=== PATIENT | male | born 1975 | race Native Hawaiian/Other Pacific Islander ===

== ENCOUNTER 2020-08-06 17:40 | Emergency (ER) | payer SELFPAY ==
[2020-08-06] MEDS ORDERED: HYDROcodone/ACETAMINOPHEN 5-325 MG TAB PO ONE (18:17)
[2020-08-06] MEDS ORDERED: LIDOCAINE-MPF (1%) 10 MG/1 ML VIAL 5 ML INFILTRATI ONE (18:18)
--- NOTE | 2020-08-06 18:52 | Emergency Department Report ---
- General Chief complaint: Skin/Abscess/Foreign Body Stated complaint: RT BUTTOCK ABSCESS Time Seen by Provider: 08/06/20 18:00 Source: patient, order planner (juliette) Mode of arrival: Ambulatory Limitations: Language Barrier - History of Present Illness Initial comments: juliette, patient account retention representative used for Sammarinese interpretation Patient is a 44-year-old male presents emergency room with complaints of an abscess to the right buttock that began a week ago. He states that he has had pain, swelling, redness to the buttock. He states that he went to a primary care doctor 4 days ago and was given an IM injection and prescribed Keflex and ibuprofen. He states that despite the medications it has been worsening. He denies any drainage, fever, vomiting, chills. He states that he had one in the same area in October 2019 and it went away after taking medications and has not had to have an I&D in the past. He denies any past medical history. No allergies to medications. - Related Data Previous Rx's Medication Instructions Recorded Last Taken Type Acetaminophen/Codeine [Tylenol 1 tab PO Q6H PRN #10 tab 08/06/20 Unknown Rx /Codeine # 3 tab] Sulfamethoxazole/Trimethoprim 1 each PO BID 7 Days #14 tablet 08/06/20 Unknown Rx [Bactrim DS TAB] Allergies Allergy/AdvReac Type Severity Reaction Status Date / Time No Known Allergies Allergy Unverified 08/06/20 17:43 Abscess Boil HPI - HPI Chief Complaint: Skin/Abscess/Foreign Body Stated Complaint: RT BUTTOCK ABSCESS Time Seen by Provider: 08/06/20 18:00 Home Medications: Previous Rx's Medication Instructions Recorded Last Taken Type Acetaminophen/Codeine [Tylenol 1 tab PO Q6H PRN #10 tab 08/06/20 Unknown Rx /Codeine # 3 tab] Sulfamethoxazole/Trimethoprim 1 each PO BID 7 Days #14 tablet 08/06/20 Unknown Rx [Bactrim DS TAB] Allergies/Adverse Reactions: Allergies Allergy/AdvReac Type Severity Reaction Status Date / Time No Known Allergies Allergy Unverified 08/06/20 17:43 ED Review of Systems ROS: Stated complaint: RT BUTTOCK ABSCESS Other details as noted in HPI Comment: All other systems reviewed and negative ED Past Medical Hx - Past Medical History Previous Medical History?: No - Surgical History Past Surgical History?: No - Medications Home Medications: Home Medications Medication Instructions Recorded Confirmed Last Taken Type Acetaminophen/Codeine [Tylenol 1 tab PO Q6H PRN #10 tab 08/06/20 Unknown Rx /Codeine # 3 tab] Sulfamethoxazole/Trimethoprim 1 each PO BID 7 Days #14 tablet 08/06/20 Unknown Rx [Bactrim DS TAB] ED Physical Exam - General Limitations: No Limitations General appearance: alert, in no apparent distress - Head Head exam: Present: atraumatic, normocephalic - Eye Eye exam: Present: normal appearance - ENT ENT exam: Present: mucous membranes moist - Respiratory Respiratory exam: Absent: respiratory distress, accessory muscle use - Neurological Exam Neurological exam: Present: alert, oriented X3 - Psychiatric Psychiatric exam: Present: normal affect, normal mood - Skin Skin exam: Present: warm, dry, other (irrigation pump installer: napoleon ch, there is a 3 cm area of induration with central flutuance present to the right gluteal region near the gluteal crease with the right thigh, there is a 5 cm area of surrounding erythema, is not in the gluteal cleft or near the perirectal region, there is no drainage, no opening, no necrosis, no skin denduing, no blistering) ED Course Vital Signs 08/06/20 08/06/20 17:44 19:05 Temperature 98.2 F 98.2 F Pulse Rate 60 Respiratory 18 18 Rate Blood Pressure 153/100 Blood Pressure 145/95 [Right] O2 Sat by Pulse 99 Oximetry - I & D Right Buttocks Type of Procedure: Simple Site: right gluteal region Blade Size: 11 I & D Procedure: betadine prep, sterile drapes applied, sterile dressing applied Progress: irrigation pump installer: napoleon ch Betadine prep, 4 cc of 1% lidocaine without epinephrine used as anesthetic, Betadine prep again, sterile drapes applied, 11 blade used to make 1 cm incision, moderate amount of purulent drainage expressed, used blunt forceps to break up any loculations, irrigated with saline, packed with 1/4 inch iodoform gauze, patient tolerated well, no complications, bleeding controlled, sterile dressing applied ED Medical Decision Making - Medical Decision Making juliette, patient account retention representative used for Sammarinese interpretation Patient is a 44-year-old male presents emergency room with complaints of an abscess to the right buttock that began a week ago. He states that he has had pain, swelling, redness to the buttock. He states that he went to a primary care doctor 4 days ago and was given an IM injection and prescribed Keflex and ibuprofen. He states that despite the medications it has been worsening. He denies any drainage, fever, vomiting, chills. He states that he had one in the same area in October 2019 and it went away after taking medications and has not had to have an I&D in the past. He denies any past medical history. No allergies to medications. VSS. on exam: irrigation pump installer: jing permanent waver, there is a 3 cm area of induration with central flutuance present to the right gluteal region near the gluteal crease with the right thigh, there is a 5 cm area of surrounding erythema, is not in the gluteal cleft or near the perirectal region, there is no drainage, no opening, no necrosis, no skin denduing, no blistering. I&D performed per procedure note. pt given prescription for bactrim and tylenol with codeine. advised pt Please take medication as prescribed. Do not drive or operate machinery while taking pain medication. Packing needs to be removed in 2 days, please return to the emergency room. Please keep area clean, dry, covered. May wash around area with soap and water and pat dry. No hot tub, no pool, no soaking in water. Showering is fine. Return to emergency room immediately for any new or worsening symptoms. Critical care attestation.: If time is entered above; I have spent that time in minutes in the direct care of this critically ill patient, excluding procedure time. ED Disposition Clinical Impression: Abscess, gluteal, right Disposition: DC-01 TO HOME OR SELFCARE Is pt being admited?: No Does the pt Need Aspirin: No Condition: Stable Instructions: Abscess Incision and Drainage (ED) Additional Instructions: Please take medication as prescribed. Do not drive or operate machinery while taking pain medication. Packing needs to be removed in 2 days, please return to the emergency room. Please keep area clean, dry, covered. May wash around area with soap and water and pat dry. No hot tub, no pool, no soaking in water. Showering is fine. Return to emergency room immediately for any new or worsening symptoms. [place] los medicamentos segn lo prescrito. No conduzca ni maneje maquinaria mientras est tomando analgsicos. El empaque debe retirarse en 2 romano, regrese a la cheryl de emergencias. Mantenga el radha limpia, seca y cubierta. Puede vandana alrededor del radha con agua y jabn y secar. Sin baera de hidromasaje, sin piscina, sin remojo en agua. Ducharse est renata. Regrese a la cheryl de emergencias de inmediato ante cualquier sntoma nuevo o que empeore. Prescriptions: Sulfamethoxazole/Trimethoprim [Bactrim DS TAB] 1 each PO BID 7 Days #14 tablet Acetaminophen/Codeine [Tylenol /Codeine # 3 tab] 1 tab PO Q6H PRN #10 tab PRN Reason: pain Referrals: PRIMARY CARE,MD [Primary Care Provider] - 2-3 Days Time of Disposition: 18:52 Print Language: ROMANIAN
[2020-08-06 19:06] VITALS: BP 145/95
== END 2020-08-06 19:08 | disposition home or self-care (01) ==
LOC: ED 17:40
DX: L02.31 Cutaneous abscess of buttock (principal); Z79.899 Other long term (current) drug therapy

== ENCOUNTER → 2020-08-08 17:42 | Emergency (ER) | payer SELFPAY | END | disposition left against medical advice (07) | LOC: ED 17:42 | DX: Z53.21 Procedure and treatment not carried out due to patient leaving prior to being seen by health care provider (principal) ==

== ENCOUNTER 2020-08-09 17:21 | Emergency (ER) | payer SELFPAY ==
[2020-08-09 17:35] VITALS: BP 135/86
--- NOTE | 2020-08-09 17:35 | Emergency Department Report ---
Suture/Staple Removal - [facility] Chief Complaint: Wound/Laceration Stated Complaint: CHECK WOUND Time Seen by Provider: 08/09/20 17:31 When Sutures or Todd Placed: 5-7 Days Ago Wound Location: right buttock ED Review of Systems ROS: Stated complaint: CHECK WOUND Other details as noted in HPI Constitutional: denies: chills, fever Eyes: denies: eye pain, eye discharge, vision change ENT: denies: ear pain, throat pain Respiratory: denies: cough, shortness of breath, wheezing Cardiovascular: denies: chest pain, palpitations Endocrine: no symptoms reported Gastrointestinal: denies: abdominal pain, nausea, diarrhea Genitourinary: denies: urgency, dysuria Musculoskeletal: denies: back pain, joint swelling, arthralgia Skin: denies: rash, lesions Neurological: denies: headache, weakness, paresthesias Psychiatric: denies: anxiety, depression Hematological/Lymphatic: denies: easy bleeding, easy bruising ED Past Medical Hx - Past Medical History Previous Medical History?: No - Surgical History Past Surgical History?: No - Social History Smoking Status: Never Smoker Substance Use Type: None - Medications Home Medications: Home Medications Medication Instructions Recorded Confirmed Last Taken Type Acetaminophen/Codeine [Tylenol 1 tab PO Q6H PRN #10 tab 08/06/20 Unknown Rx /Codeine # 3 tab] Sulfamethoxazole/Trimethoprim 1 each PO BID 7 Days #14 tablet 08/06/20 Unknown Rx [Bactrim DS TAB] Suture Removal Exam - Exam General: Vital signs noted. No distress. Alert and acting appropriately. Wound: No Pathologic Erythema, No Tenderness, No Drainage, No Pus, No Wound Dehiscence Other Systems: All other systems reviewed and are unremarkable. ED Course Vital Signs 08/09/20 17:34 Temperature 98.2 F Pulse Rate 54 L Respiratory 18 Rate Blood Pressure 135/86 O2 Sat by Pulse 97 Oximetry - Reevaluation(s) Reevaluation #1: 08/09/20 17:33 Patient is speaking in full sentences with no signs of distress noted. ED Recheck MDM - Medical Decision Making 11/05 packing removed. Patient tolerated well. no swelling. normal healing. no abscess. no cellulitis. Patient was instructed to Follow-up with a primary care doctor in 3-5 days or if symptoms worsen and continue return to emergency room as soon as possible. At time of discharge, the patient does not seem toxic or ill in appearance. No acute signs of distress noted. Patient agrees to discharge treatment plan of care. No further questions noted by the patient. Critical care attestation.: If time is entered above; I have spent that time in minutes in the direct care of this critically ill patient, excluding procedure time. ED Disposition Clinical Impression: Abscess packing removal Disposition: DC- TO HOME OR SELFCARE Is pt being admited?: No Does the pt Need Aspirin: No Condition: Stable Additional Instructions: Follow-up with a primary care doctor in 3-5 days or if symptoms worsen and continue return to emergency room as soon as possible. Referrals: PRIMARY MD CLEMENT [Referring] - 3-5 Days DAVIDSON ROME MD [Staff Physician] - 3-5 Days
== END 2020-08-09 18:00 | disposition home or self-care (01) ==
LOC: ED 17:21
DX: L02.31 Cutaneous abscess of buttock (principal); Z48.02 Encounter for removal of sutures; Z79.899 Other long term (current) drug therapy

== ENCOUNTER 2021-07-23 16:35 | Emergency (ER) | payer SELFPAY ==
[2021-07-23 17:34] VITALS: BP 139/86
--- NOTE | 2021-07-23 18:26 | Emergency Department Report ---
ED General Adult HPI - General Chief complaint: Skin/Abscess/Foreign Body Stated complaint: RT GLUTEAL ABCESS Time Seen by Provider: 07/23/21 17:35 Source: patient Mode of arrival: Ambulatory Limitations: No Limitations - History of Present Illness Initial comments: 45-year-old male patient presents with complaints of right buttock abscess x7 days. He states the abscess began to drain today. He denies any fever/chills/sweats. He does report history of an abscess in the same area 1 year ago. -: Gradual - Related Data Previous Rx's Medication Instructions Recorded Last Taken Type Acetaminophen/Codeine [Tylenol 1 tab PO Q6H PRN #10 tab 08/06/20 Unknown Rx /Codeine # 3 tab] Sulfamethoxazole/Trimethoprim 1 each PO BID 7 Days #14 tablet 08/06/20 Unknown Rx [Bactrim DS TAB] Clindamycin [Clindamycin CAP] 300 mg PO Q6H 10 Days #40 capsule 07/23/21 Unknown Rx Ibuprofen [Motrin 800 MG tab] 800 mg PO Q8HR PRN #20 tablet 07/23/21 Unknown Rx Mupirocin [Bactroban 2% OINT] 1 applic TP TID 7 Days #1 tube 07/23/21 Unknown Rx Allergies Allergy/AdvReac Type Severity Reaction Status Date / Time No Known Allergies Allergy Unverified 08/06/20 17:43 ED Review of Systems ROS: Stated complaint: RT GLUTEAL ABCESS Other details as noted in HPI Constitutional: denies: chills, diaphoresis, fever, malaise, weakness Skin: as per HPI ED Past Medical Hx - Past Medical History Previous Medical History?: No - Surgical History Past Surgical History?: No - Social History Smoking Status: Never Smoker Substance Use Type: None - Medications Home Medications: Home Medications Medication Instructions Recorded Confirmed Last Taken Type Acetaminophen/Codeine [Tylenol 1 tab PO Q6H PRN #10 tab 08/06/20 Unknown Rx /Codeine # 3 tab] Sulfamethoxazole/Trimethoprim 1 each PO BID 7 Days #14 tablet 08/06/20 Unknown Rx [Bactrim DS TAB] Clindamycin [Clindamycin CAP] 300 mg PO Q6H 10 Days #40 capsule 07/23/21 Unknown Rx Ibuprofen [Motrin 800 MG tab] 800 mg PO Q8HR PRN #20 tablet 07/23/21 Unknown Rx Mupirocin [Bactroban 2% OINT] 1 applic TP TID 7 Days #1 tube 07/23/21 Unknown Rx ED Physical Exam - General Limitations: No Limitations General appearance: alert, in no apparent distress - Head Head exam: Present: atraumatic, normocephalic - Eye Eye exam: Present: normal appearance - Respiratory Respiratory exam: Absent: respiratory distress - Cardiovascular Cardiovascular Exam: Present: regular rate - Neurological Exam Neurological exam: Present: alert, oriented X3 - Psychiatric Psychiatric exam: Present: normal affect, normal mood - Skin Skin exam: Present: warm, dry, other (Open draining abscess noted to right lower buttock with surrounding induration and erythema). Absent: rash ED Course Vital Signs 07/23/21 17:31 Temperature 98 F Pulse Rate 52 L Respiratory 16 Rate Blood Pressure 139/86 O2 Sat by Pulse 98 Oximetry ED Medical Decision Making - Medical Decision Making 45-year-old male patient presents with complaints of right buttock abscess x7 days. He states the abscess began to drain today. He denies any fever/chills/sweats. He does report history of an abscess in the same area 1 year ago. Abscess is open and draining. No further purulent drainage expressed with manipulation. Wound cleaned with Betadine and sterile dressing placed over wound. Antibiotics given for home. Discussed wound care and signs and symptoms that should prompt immediate return to the emergency department in detail patient verbalizes understanding. He is to follow-up with his primary care doctor in 3 days for wound recheck. Patient is well-appearing, his vitals are normal, he is stable for discharge home. Critical care attestation.: If time is entered above; I have spent that time in minutes in the direct care of this critically ill patient, excluding procedure time. ED Disposition Clinical Impression: Infected sebaceous cyst Disposition: HOME / SELF CARE / HOMELESS Is pt being admited?: No Condition: Stable Instructions: Epidermal Cyst, Incision and Drainage, Care After Prescriptions: Mupirocin [Bactroban 2% OINT] 1 applic TP TID 7 Days #1 tube Clindamycin [Clindamycin CAP] 300 mg PO Q6H 10 Days #40 capsule Ibuprofen [Motrin 800 MG tab] 800 mg PO Q8HR PRN #20 tablet PRN Reason: pain Referrals: [facility] [Provider Group] - 3-5 Days
== END 2021-07-23 19:30 | disposition home or self-care (01) ==
LOC: ED 16:35
DX: L72.3 Sebaceous cyst (principal)
CPT/HCPCS: 99282